=== PATIENT | female | born 1990 | race African-American/Black ===

== ENCOUNTER 2017-01-28 20:22 | Emergency (ER) | payer SELFPAY ==
[2017-01-28 21:04] VITALS: BP 130/88
[2017-01-28] MEDS ORDERED: AZITHROMYCIN 250 MG TABLET PO ONE (22:23)
--- NOTE | 2017-01-28 22:24 | ER Document Report ---
ED ENT - General Chief Complaint: Cold Symptoms Stated Complaint: COUGH/CHEST PAIN Time Seen by Provider: 01/28/17 22:19 Mode of Arrival: Ambulatory Information source: Patient TRAVEL OUTSIDE OF THE [place] IN LAST 30 DAYS: No - HPI Patient complains to provider of: Throat problem Onset: - Monday Onset/Duration: Gradual, Persistent Quality of pain: Achy Severity: Mild Pain Level: 2 Location of pain: Nose, Sinus, Throat Associated symptoms: Chills, Congestion, Cough, Fever, Sore throat Similar symptoms previously: No Recently seen / treated by doctor: No Notes: Patient is a 18-year-old female who presents to emergency room complaining of cough, sore throat, fever, chest tightness, symptoms been going on for the past 5 days, she reports multiple recent sick contacts and recent travel to [place] - Related Data Allergies/Adverse Reactions: Penicillins Allergy (Verified 01/28/17 21:02) Past Medical History - General Information source: Patient - Social History Smoking Status: Never Smoker Family History: Reviewed & Not Pertinent Renal/ Medical History: Denies: Hx Peritoneal Dialysis Surgical Hx: Negative - Immunizations Hx Diphtheria, Pertussis, Tetanus Vaccination: Yes Review of Systems - Review of Systems Constitutional: Fever EENT: See HPI Cardiovascular: No symptoms reported Respiratory: See HPI Gastrointestinal: No symptoms reported Genitourinary: No symptoms reported Female Genitourinary: No symptoms reported Musculoskeletal: No symptoms reported Skin: No symptoms reported Hematologic/Lymphatic: No symptoms reported Neurological/Psychological: No symptoms reported -: Yes All other systems reviewed and negative Physical Exam - Vital signs Vitals: Temp Pulse Resp BP Pulse Ox 99.0 F 80 16 130/88 H 100 01/28/17 21:02 01/28/17 21:02 01/28/17 21:02 01/28/17 21:02 01/28/17 21:02 Interpretation: Normal - General General appearance: Appears well In distress: None - HEENT Head: Normocephalic, Atraumatic Eyes: Normal Conjunctiva: Normal Extraocular movements intact: Yes Eyelashes: Normal Pupils: PERRL Pharynx: Erythema, Exudate, Tonsillar hypertrophy Neck: Normal - Respiratory Respiratory status: No respiratory distress Chest status: Nontender Breath sounds: Normal Chest palpation: Normal - Cardiovascular Rhythm: Regular Heart sounds: Normal auscultation Murmur: No - Abdominal Inspection: Normal Distension: No distension Bowel sounds: Normal Tenderness: Nontender Organomegaly: No organomegaly - Back Back: Normal, Nontender - Extremities General upper extremity: Normal inspection, Nontender, Normal color, Normal ROM , Normal temperature General lower extremity: Normal inspection, Nontender, Normal color, Normal ROM , Normal temperature, Normal weight bearing. No: Haley's sign - Neurological Neuro grossly intact: Yes Cognition: Normal Orientation: AAOx4 [place] Coma Scale Eye Opening: Spontaneous [place] Coma Scale Verbal: Oriented [place] Coma Scale Motor: Obeys Commands [place] Coma Scale Total: 15 Speech: Normal Motor strength normal: LUE, RUE, LLE, RLE Sensory: Normal - Psychological Associated symptoms: Normal affect, Normal mood - Skin Skin Temperature: Warm Skin Moisture: Dry Skin Color: Normal Course - Re-evaluation Re-evalutation: 01/28/17 22:24 Physical exam findings are consistent with strep pharyngitis, patient will be treated with antibiotics and discharged with instructions for follow-up, advised to follow-up with a primary care provider or return if symptoms worsen, patient acknowledges understanding this plan - Vital Signs Vital signs: Temp Pulse Resp BP Pulse Ox 99.0 F 80 16 130/88 H 100 01/28/17 21:02 01/28/17 21:02 01/28/17 21:02 01/28/17 21:02 01/28/17 21:02 Discharge - Discharge Clinical Impression: Strep pharyngitis Condition: Stable Disposition: HOME, SELF-CARE Instructions: Strep Throat ([facility]) Additional Instructions: Drink plenty fluids. Tylenol or Motrin as needed for fever or pain. Follow up with your primary care provider in 2-3 days. Return to the emergency room immediately if symptoms worsen or any additional concerns. Prescriptions: Azithromycin [Zithromax 250 mg Tablet] 250 mg PO ASDIR PRN #6 tablet PRN Reason: Forms: Return to Work
[2017-01-28] MEDS ORDERED: AZITHROMYCIN 250 MG TABLET ONE (22:26)
== END 2017-01-28 22:27 | disposition home or self-care (01) ==
LOC: ER 20:22
DX: J02.0 Streptococcal pharyngitis (principal); R05 Cough; R07.9 Chest pain, unspecified; R50.9 Fever, unspecified
CPT/HCPCS: 99283

== ENCOUNTER 2017-07-05 14:07 | Emergency (ER) | payer SELFPAY ==
[2017-07-05] MEDS ORDERED: NORMAL SALINE 1000 ML 1,000 ML IV ONE (14:29)
--- NOTE | 2017-07-05 14:31 | ER Document Report ---
ED Medical Screen (RME) - General Chief Complaint: Nausea/Vomiting/Diarrhea Stated Complaint: VOMITING Time Seen by Provider: 07/05/17 14:29 Notes: Patient reports sudden onset of approximately 10 AM today of nausea vomiting diarrhea and dizziness. She also had some blurry vision. She also has abdominal pain and headache. TRAVEL OUTSIDE OF THE [place] IN LAST 30 DAYS: No - Related Data Allergies/Adverse Reactions: Penicillins Allergy (Verified 07/05/17 14:11) Past Medical History - Social History Chew tobacco use (# tins/day): No Frequency of alcohol use: None Drug Abuse: None Renal/ Medical History: Denies: Hx Peritoneal Dialysis Surgical Hx: Negative - Immunizations Hx Diphtheria, Pertussis, Tetanus Vaccination: Yes History of Influenza Vaccine for 06/2017 - 11/2017 Season: No Physical Exam - Vital signs Vitals: Temp Pulse Resp BP Pulse Ox 98.7 F 95 16 140/93 H 100 07/05/17 14:13 07/05/17 14:13 07/05/17 14:13 07/05/17 14:13 07/05/17 14:13 Course - Vital Signs Vital signs: Temp Pulse Resp BP Pulse Ox 98.7 F 95 16 140/93 H 100 07/05/17 14:13 07/05/17 14:13 07/05/17 14:24 07/05/17 14:13 07/05/17 14:13
[2017-07-05 14:58] LABS: ABSOLUTE LYMPHOCYTES (AUTO) 0.9 10^3/uL (0.5-4.7); ABSOLUTE MONOCYTES (AUTO) 0.5 10^3/uL (0.1-1.4); ABSOLUTE NEUT (AUTO) 5.7 10^3/uL (1.7-8.2); BASOPHILS % (AUTO) 0.3 % (0-2); EOSINOPHILS % (AUTO) 0.4 % (0-6); HEMATOCRIT 35.1 % (36.0-47.0); HEMOGLOBIN 11.5 g/dL (12.0-15.5); HGB HCT DIFFERENCE -0.6; LYMPHOCYTES % (AUTO) 12.2 % (13-45); MEAN CORPUSCULAR HEMOGLOBIN 25.5 pg (27.0-33.4); MEAN CORPUSCULAR HGB CONC 32.6 g/dL (32.0-36.0); MEAN CORPUSCULAR VOLUME 78 fl (80-97); MONOCYTES % (AUTO) 7.4 % (3-13); RED CELL DISTRIBUTION WIDTH 16.2 % (11.5-14.0); SEGMENTED NEUTROPHILS % (AUTO) 79.7 % (42-78); WHITE BLOOD COUNT 7.2 10^3/uL (4.0-10.5)
[2017-07-05 15:02] LABS: AMORPHOUS SEDIMENT,URINE TRACE /HPF; APPEARANCE,URINE CLOUDY; BILIRUBIN,URINE NEGATIVE (NEGATIVE); GLUCOSE, URINE NEGATIVE (NEGATIVE); KETONES,URINE NEGATIVE (NEGATIVE); LEUKOCYTE ESTERASE,URINE NEGATIVE (NEGATIVE); NITRITE,URINE NEGATIVE (NEGATIVE); PROTEIN,URINE NEGATIVE (NEGATIVE); URINE SPECIFIC GRAVITY 1.026; UROBILINOGEN,URINE NEGATIVE mg/dL (<2.0)
[2017-07-05 15:10] LABS: ALANINE AMINOTRANSFERASE 42 U/L (9-52); ALBUMIN 4.3 g/dL (3.5-5.0); ALKALINE PHOSPHATASE 75 U/L (38-126); ANION GAP 12 (5-19); ASPARTATE AMINO TRANSFERASE 23 U/L (14-36); BILIRUBIN,DIRECT 0.3 mg/dL (0.0-0.4); BILIRUBIN,TOTAL 0.3 mg/dL (0.2-1.3); BLOOD UREA NITROGEN 14 mg/dL (7-20); CALCIUM 9.8 mg/dL (8.4-10.2); CARBON DIOXIDE 27 mmol/L (22-30); CHLORIDE 104 mmol/L (98-107); CREATININE RESULT 0.83 mg/dL (0.52-1.25); GLUCOSE 105 mg/dL (75-110); LIPASE 120.6 U/L (23-300); POTASSIUM 4.4 mmol/L (3.6-5.0); SODIUM 142.6 mmol/L (137-145); TOTAL PROTEIN 8.3 g/dL (6.3-8.2)
[2017-07-05] MEDS ORDERED: ONDANSETRON HCL INJ/PF 4 MG/2 ML SDV IV ONE (15:13)
--- NOTE | 2017-07-05 15:32 | ER Document Report ---
ED GI/ - General Mode of Arrival: Ambulatory Information source: Patient TRAVEL OUTSIDE OF THE [place] IN LAST 30 DAYS: No <DONOVAN JEFFERSON - Last Filed: 07/05/17 18:08> <QIAN CHANDLER - Last Filed: 07/05/17 18:23> - General Chief Complaint: Nausea/Vomiting/Diarrhea Stated Complaint: VOMITING Time Seen by Provider: 07/05/17 14:29 Notes: Patient is a 27 year old male that presents to the emergency department today with complaints of vomiting and diarrhea since this morning. Patient states she has had three episodes of diarrhea since arriving here. Patient denies any abdominal pain or recent antibiotics. (DONOVAN JEFFERSON) - Related Data Allergies/Adverse Reactions: Penicillins Allergy (Verified 07/05/17 14:11) Past Medical History - General Information source: Patient - Social History Smoking Status: Never Smoker Cigarette use (# per day): No Chew tobacco use (# tins/day): No Frequency of alcohol use: None Drug Abuse: None Lives with: Family Family History: Reviewed & Not Pertinent Patient has suicidal ideation: No Patient has homicidal ideation: No - Medical History Medical History: Negative Renal/ Medical History: Denies: Hx Peritoneal Dialysis Surgical Hx: Negative - Immunizations Hx Diphtheria, Pertussis, Tetanus Vaccination: Yes <ODNOVAN JEFFERSON - Last Filed: 07/05/17 18:08> Review of Systems - Review of Systems Constitutional: No symptoms reported EENT: No symptoms reported Cardiovascular: No symptoms reported Respiratory: No symptoms reported Gastrointestinal: See HPI, Diarrhea, Vomiting. denies: Abdominal pain Genitourinary: No symptoms reported Female Genitourinary: No symptoms reported Musculoskeletal: No symptoms reported Skin: No symptoms reported Hematologic/Lymphatic: No symptoms reported Neurological/Psychological: No symptoms reported -: Yes All other systems reviewed and negative <DONOVAN JEFFERSON - Last Filed: 07/05/17 18:08> Physical Exam - Vital signs Interpretation: Normal - General General appearance: Alert In distress: None - HEENT Head: Normocephalic, Atraumatic Eyes: Normal Pupils: PERRL Mucous membranes: Dry - Respiratory Respiratory status: No respiratory distress Chest status: Nontender Breath sounds: Normal Chest palpation: Normal - Cardiovascular Rhythm: Regular Heart sounds: Normal auscultation Murmur: No - Abdominal Inspection: Normal Distension: No distension Bowel sounds: Normal Tenderness: Nontender Organomegaly: No organomegaly - Back Back: Normal, Nontender - Extremities General upper extremity: Normal inspection, Nontender, Normal color, Normal ROM , Normal temperature General lower extremity: Normal inspection, Nontender, Normal color, Normal ROM , Normal temperature, Normal weight bearing. No: Haley's sign - Neurological Neuro grossly intact: Yes Cognition: Normal Orientation: AAOx4 [place] Coma Scale Eye Opening: Spontaneous [place] Coma Scale Verbal: Oriented [place] Coma Scale Motor: Obeys Commands [place] Coma Scale Total: 15 Speech: Normal Motor strength normal: LUE, RUE, LLE, RLE Sensory: Normal - Psychological Associated symptoms: Normal affect, Normal mood - Skin Skin Temperature: Warm Skin Moisture: Dry Skin Color: Normal <QIAN CHANDLER - Last Filed: 07/05/17 18:23> - Vital signs Vitals: Temp Pulse Resp BP Pulse Ox 98.7 F 95 16 140/93 H 100 07/05/17 14:13 07/05/17 14:13 07/05/17 14:13 07/05/17 14:13 07/05/17 14:13 Course - Laboratory Result Diagrams: 07/05/17 14:30 07/05/17 14:30 <DONOVAN JEFFERSON - Last Filed: 07/05/17 18:08> - Laboratory Result Diagrams: 07/05/17 14:30 07/05/17 14:30 <QIAN CHANDLER - Last Filed: 07/05/17 18:23> - Re-evaluation Re-evalutation: 07/05/17 Patient with no abdominal pain or tenderness to palpation. Patient is able to take p.o. after being given Zofran. Patient will be discharged home with nausea medicine. No abnormalities on blood work. Patient has been given Imodium. She is to take p.o. fluids and nausea medication as needed. Return immediately if any worsening or concerning symptoms such as pain, intractable vomiting, or any other concerns. (QIAN CHANDLER) - Vital Signs Vital signs: Temp Pulse Resp BP Pulse Ox 99.0 F 104 H 18 127/93 H 100 07/05/17 16:24 07/05/17 16:24 07/05/17 16:24 07/05/17 16:24 07/05/17 16:24 - Laboratory Laboratory results interpreted by me: 07/05/17 07/05/17 14:30 14:30 Hgb 11.5 L Hct 35.1 L MCV 78 L MCH 25.5 L RDW 16.2 H Seg Neutrophils % 79.7 H Lymphocytes % 12.2 L Total Protein 8.3 H Discharge <DONOVAN JEFFERSON - Last Filed: 07/05/17 18:08> <QIAN CHANDLER - Last Filed: 07/05/17 18:23> - Discharge Clinical Impression: Vomiting Qualifiers: Vomiting type: unspecified Vomiting Intractability: non-intractable Nausea presence: with nausea Qualified Code(s): R11.2 - Nausea with vomiting, unspecified Diarrhea Qualifiers: Diarrhea type: unspecified type Qualified Code(s): R19.7 - Diarrhea, unspecified Condition: Stable Disposition: HOME, SELF-CARE Instructions: Diarrhea, Nonspecific ([facility]), Vomiting ([facility]) Prescriptions: Metoclopramide HCl [Reglan 10 mg Tablet] 1 tab PO TIDP PRN #25 tablet PRN Reason: Forms: Return to Work Scribe Attestation: 07/05/17 18:23 I personally performed the services described in the documentation, reviewed and edited the documentation which was dictated to the scribe in my presence, and it accurately records my words and actions. (QIAN CHANDLER) Scribe Documentation - Scribe Written by Zacke:: Anum Cervantes, 07/05/2017 1810 acting as scribe for :: Kiersten <DONOVAN JEFFERSON - Last Filed: 07/05/17 18:08>
[2017-07-05] MEDS ORDERED: LOPERAMIDE HCL 2 MG CAPSULE PO ONE (15:40)
[2017-07-05] MEDS ORDERED: ONDANSETRON ODT 4 MG TAB (6 TAB/ER DISP) PO PRN (16:00)
[2017-07-05 16:28] VITALS: BP 127/93
== END 2017-07-05 17:00 | disposition home or self-care (01) ==
LOC: ER 14:07
DX: R11.2 Nausea with vomiting, unspecified (principal); R19.7 Diarrhea, unspecified
CPT/HCPCS: 99284; 96361; 96374; 36415; 83690; 85025; 81025; 80053; 81001; J2405; J7030